=== PATIENT | female | born 1950 | race Caucasian/White ===

== ENCOUNTER 2016-11-05 19:52 | Inpatient (IN) | payer OTHER ==
[~2016-11-05] VITALS: Ht 165.1 cm; Wt 97.1 kg
--- NOTE | ~2016-11-05 | HC ---
[facility] [place] [address] CONSULTATION Name: JV LUTZ Room #: 434-P [facility] IN ..#: [id number] Admission: 11/05/16 Attend Phys: Adeel Wylie MD Discharge: 11/15/16 Date of : 54 Report #: [id number] THIS REPORT FOR: //name// CC: [facility] physician/PCP Adeel Guevara HISTORY OF PRESENT ILLNESS: The patient is a 66-year-old white female originally admitted with bilateral lower extremity pain, was noted to have peripheral arterial disease, placed on IV heparin, had left [id number] superficial femoral artery occlusion. She underwent COAT FINISHER with thrombectomy and thrombolysis on 11/06/2016. She had bilateral toe ischemia due to peripheral arterial disease status post TPA with 4 interventions done. Her course was complicated by dark stools. Heparin was held. EGD 11/12/2016 revealed esophageal plaque with reflux esophagitis. Heparin was discontinued secondary to the bleeding. She is continuing on aspirin. She is also on Plavix. She has had a significant functional decline and we are seeing her in rehabilitation medicine consultation. PAST MEDICAL HISTORY: Includes history of a small right thalamic infarct without significant residual, hypertension, dyslipidemia, tobaccoism, coronary artery disease status post PTCA right coronary artery. MEDICATIONS: Please see the full medication listing. HABITS: Still smokes a pack of cigarettes per day, occasional alcohol as well. FAMILY HISTORY: Positive for coronary artery disease in both parents. SOCIAL HISTORY: Lives in a house with her parents. She has been staying in the basement level of a split-level house. She has to climb 8 steps to the main level and then another 8 steps to reach the toilet and shower. She cares for her parents. Her son is currently caring for them. ALLERGIES: No known drug allergies. REVIEW OF SYSTEMS: Did not offer any current complaints of chest pain, shortness of breath or abdominal discomfort. PHYSICAL EXAMINATION: GENERAL: A 66-year-old white female in no obvious distress. VITAL SIGNS: Last recorded temperature 98.2, pulse 73, respirations 18, blood pressure 127/58. NEUROLOGIC: The patient is alert, pleasant, oriented. HEENT: Appeared to be benign. Cranial nerves are grossly intact. Facies are symmetric. EXTREMITIES: She has functional range of motion of both upper extremities [facility] [address] [place] [address] CONSULTATION Name: JV LUTZ Room #: 434-P [facility] IN [facility].#: [id number] Admission: 11/05/16 Attend Phys: Adeel Wylie MD Discharge: 11/15/16 Date of : 54 Report #: [id number] without obvious focal weakness. DTRs are trace to 1. In her lower extremities, she has some discomfort moving both feet. I would grade her strength at probably a 4- to 3+/5. She was sit to stand mod assist. She notes she has done some limited walking with nursing back and forth to the bathroom. ASSESSMENT: 1. Bilateral lower extremity distal ischemia due to peripheral arterial disease status post TPA and 4 interventions as noted. 2. Gastrointestinal bleed with esophageal plaque and reflux esophagitis. Heparin has been stopped. She continues on Plavix and aspirin. 3. Acute renal insufficiency stage 3, improving. 4. Hypertension, controlled. 5. Hyperlipidemia. 6. Coronary artery disease status post stent to right coronary artery. 7. History of cerebrovascular accident, right thalamic infarct without residual weakness. 8. Tobacco abuse. PLAN: We are assessing the patient regarding her rehab therapy needs. Insurance will need to be checked regarding rehab therapy options. I encouraged her to try to continue to improve her functional mobility and ADL as well. We continue to follow along with you. <ELECTRONICALLY SIGNED> By: Abdirahman Wolff MD 11/20/16 1523 [id number] [id number] Abdirahman Wolff MD /nt
--- NOTE | ~2016-11-05 | D ---
[facility] [place] [address] DISCHARGE SUMMARY Name: JV LUTZ Room #: 434-P [facility] IN .R.#: [id number] Admission: 11/05/16 Attend Phys: Adeel Wylie MD Discharge: 11/15/16 Date of : 54 Report #: [id number] THIS REPORT FOR: //name// CC: [facility] physician/PCP Adeel Guevara DATE OF SERVICE: 11/15/2016 DATE OF ADMISSION: 11/05/2016. DATE OF DISCHARGE: 11/15/2016. ADMISSION DIAGNOSES: 1. Peripheral arterial disease with right distal superficial femoral artery stenosis, left mid to distal superficial femoral artery occlusion, and occlusion in the dorsalis pedis arteries bilateral. 2. Hypertension. 3. Hyperlipidemia. 4. Acute kidney injury. 5. Coronary artery disease. 6. Cerebrovascular accident with right thalamic infarct with no residual weakness. DISCHARGE DIAGNOSES: 1. She has left second toe and the big toe with toe ischemia due to peripheral arterial disease status post tPA with 4 interventions of right distal superficial femoral artery stenosis, left distal superficial femoral artery occlusion and occlusion of the dorsalis pedis arteries, bilateral. She had a tPA, stent placement by IR. 2. Acute kidney injury on chronic kidney disease, which is improving. Renal was following throughout this hospitalization. 3. Gastrointestinal versus vaginal bleed. She had an EGD done, but she refused for colonoscopy. Questionably, she had a vaginal bleed, which has resolved. She has been postmenopausal for about 15+ years that need to be investigated further. Rule out endometrial cancer. 4. Hypertension. 5. Hyperlipidemia. 6. Coronary artery disease. 7. History of right thalamic infarct with no residual weakness. PROCEDURE: As described, she had seen IR, consulted for an angiogram and then she ended up having a tPA for intervention as described above. Her left second and left big toe, they were still ischemic, purplish color. Overall, she did improve, but she still had 2 ischemic toes. She may down the road end up getting amputation on that, but overall discussed with IR, Dr. Ab Pickering, [facility] [address] [place] [address] DISCHARGE SUMMARY Name: JV LUTZ Room #: 434-P [facility] IN M.R.#: [id number] Admission: 11/05/16 Attend Phys: Adeel Wylie MD Discharge: 11/15/16 Date of : 54 Report #: [id number] that is the best they could do. Pain is moderately controlled. HOSPITAL COURSE: During hospitalization as described, intervention was done. She did improve, and she had left big toe and the second toe that were still ischemic. She had a purplish turning into more like darks and still ischemic; quite a bit of pain, which is controlled with the medication. Also, during this hospitalization, she had a questionable vaginal versus gastrointestinal bleed. She had EGD, but she refused for colonoscopy, and also if she had a vaginal bleed, which has in fact resolved, with the postmenopausal status, she would need an endometrial biopsy to rule out endometrial CA, which we did schedule with the [facility]QUIPMENT ENGINE MECHANIC as outpatient since we do not have HE[facility] EQUIPMENT ENGINE MECHANIC in this hospital. We did schedule that. Regarding her rest of problems, they were controlled. We did arrange a rehab placement for her, but the patient refused to stay in the hospital for rehabilitation. All she wanted was go home. We did discuss the benefits and risks for that, and the patient still decided to go home. She was basically discharged with the plan to follow up with IR as scheduled in 3-4 weeks, and she is going to also schedule to follow up with HE[employer]QUIPMENT ENGINE MECHANIC in 1 week. See all the notes in the chart for further details. GI is going to see her in one month, and again, the patient decided to go home. That was her choice. We did offer her to stay in the rehab and also recommended it is important to follow up with HEAV[employer] EQUIPMENT ENGINE MECHANIC regarding her questionable vaginal bleed, to rule out endometrial CA. The patient does understand all this and then basically she went home. She was discharged, not left AMA, but again, it was her decision to go home and that not to stay in the hospital for further rehabilitation program all that. By: [id number] Manjit Guevara MD /nt
--- NOTE | ~2016-11-05 | HC ---
[facility] [place] [address] CONSULTATION Name: JV LUTZ Room #: 434-P [facility] IN .R.#: [id number] Admission: 11/05/16 Attend Phys: Adeel Wylie MD Discharge: 11/15/16 Date of : 54 Report #: [id number] THIS REPORT FOR: //name// CC: [facility] physician/PCP Adeel Cherryma DATE OF SERVICE: 11/14/2016 REQUESTING PHYSICIAN: Jorge Braswell MD CHIEF COMPLAINT: Ischemic toes. HISTORY OF PRESENT ILLNESS: This is a 66-year-old white female with a history of known peripheral vascular disease, who was admitted through the Emergency Department for acute ischemia of bilateral lower extremities. The patient supposedly having increasing pain in both lower extremities for the past several weeks. The patient states that she has been putting ice packs on her feet to help with some of the pain; however, in the Emergency Department when asked about noticed in her toes which was somewhat ischemic, she said she had not noticed that. The patient states she has been out of insurance for several months and has not been taking any of the medicines that she is supposed to be taking. The patient has no open ulcerations at this time; however, I have been asked to assist in the care of the ischemic toes. The patient does complain of claudication, pain with walking, where she has to stop occasionally. PAST MEDICAL HISTORY: Significant for right thalamic infarct, peripheral vascular disease, coronary artery disease status post PTCA of the right coronary artery, tobacco use, dyslipidemia, and hypertension. CURRENT MEDICATIONS: Aspirin, Lipitor, Lopressor and Advil. DRUG ALLERGIES: None. SOCIAL HISTORY: The patient still smokes 1-pack of cigarettes daily, does not drink alcohol. FAMILY HISTORY: Not pertinent to current medical condition. REVIEW OF SYSTEMS: CONSTITUTIONAL: The patient denies fevers or chills. NEUROLOGIC: The patient does complain of some numb-type feeling in both her feet, but no isolated weakness. EYES: No complaints. ENT: No complaints. CARDIAC: The patient denies chest pain, palpitations or peripheral edema. [address] [address] CONSULTATION Name: JV LUTZ Room #: 434-P [facility] IN [facility]#: [id number] Admission: 11/05/16 Attend Phys: Adeel Wylie MD Discharge: 11/15/16 Date of : 54 Report #: [id number] RESPIRATORY: The patient denies shortness breath, cough, or wheezes. GASTROINTESTINAL: The patient denies nausea, vomiting, or abdominal pain. GENITOURINARY: The patient denies urgency or frequency. MUSCULOSKELETAL: Noncompliant. SKIN: The patient has ischemic toes on the left great and second toe and the right great toe. PHYSICAL EXAMINATION: VITAL SIGNS: Stable. The patient is afebrile. GENERAL: This is alert and oriented x 3, pleasant black female, who is in no acute distress. HEENT: Normocephalic, atraumatic. Mucous membranes are moist. Pupils are round. Sclerae white. NECK: Without JVD or masses. BACK: Nontender. LUNGS: Clear. HEART: Regular, without murmur. ABDOMEN: Soft and nontender. EXTREMITIES: The patient moves all extremities without difficulty. Distal pulses are faint, but palpable. Evaluation of the left great second toe revealed ecchymotic/black discoloration to the toes; however, they are soft and not . They are somewhat cool to palpation. There are no signs of any open ulcerations. The rest of the toes on the left were intact. Left heel is intact. Right great toe has an eschar developing on the plantar aspect of the base of the great toe. The rest of the toes were all intact. There is no open the patient noted. NEUROLOGIC: Cranial nerves 2-12 are grossly intact. Motor and sensory grossly intact. LABORATORY VALUES: White count 13.9, hemoglobin 10.9, and albumin is 2.1. WOUND CARE COURSE: At this time, we will start Betadine to all the areas, have the patient do this daily at home. I will follow the patient up in my clinic as an outpatient in hopes of that we can salvage all of these toes and that his ischemic events are only superficial. The patient is now status percutaneous intervention. IMPRESSION: 1. Left great and second ischemic skin changes without signs of open ulcerations. 2. Ischemic changes to the right great toe with eschar. 3. Severe peripheral arterial disease, status post peripheral intervention. 4. History of coronary artery disease. 5. Hyperlipidemia. 6. Severe protein calorie malnutrition with albumin of 2.1. [address] [address] CONSULTATION Name: JV LUTZ Room #: 434-P [facility] IN M.R.#: [id number] Admission: 11/05/16 Attend Phys: Adeel Wylie MD Discharge: 11/15/16 Date of : 54 Report #: [id number] PLAN: Once again described as above, the patient will paint the toes with Betadine daily. We will follow the patient up in our clinic. Once again I hope that these ischemic changes of the toes are superficial and we can start salvage the toes without having to perform amputation. We will follow the patient closely. We will also encourage the patient to stop smoking. I explained to her the effects of smoking on her, which causes worsening vascular constriction. We will also encourage the patient to maximize oral protein supplementation for healing. I appreciate the ability to consult. By: [id number] Adarsh Ferguson MD /nt
--- NOTE | ~2016-11-05 | HC ---
[facility] [place] [address] CONSULTATION Name: JV LUTZ Room #: 434-P [facility] IN M.R.#: [id number] Admission: 11/05/16 Attend Phys: Adeel Wylie MD Discharge: Date of : 54 Report #: [id number] THIS REPORT FOR: //name// CC: [facility] physician/PCP Adeel uGevara DATE OF SERVICE: 11/06/2016 RENAL CONSULTATION PATIENT LOCATION: ICU room 238. REASON FOR CONSULTATION: Critical care renal consultation in the setting of bilateral lower extremity ischemia and acute kidney injury. HISTORY OF PRESENT ILLNESS: This 66-year-old has a known history of advanced atherosclerotic cardiovascular disease. She is status post previous myocardial infarction with percutaneous coronary intervention and has had 2 prior CVAs. She has continued to smoke 1 pack of cigarettes daily. She last had medical attention in 2014 when she was hospitalized at [facility] with an acute CVA. The patient reports that over the course of the last month, her feet have grown increasingly painful and increasingly blue in coloration. She ultimately presented to the [facility] Emergency Room on the evening prior to consultation, where she was found to have advanced ischemic changes of her feet bilaterally. She is admitted at this time. She has undergone laser thrombectomy and thrombolysis through the course of the day today and is seen post-procedure in the intensive care unit with thrombolytics still running. PAST MEDICAL HISTORY: Remarkable for previous right thalamic infarct, hypertension, dyslipidemia and coronary artery disease, status post PTCA to the right coronary artery. She has ongoing tobacco abuse at one pack of cigarettes daily. FAMILY HISTORY: Remarkable for coronary artery disease in both parents. PERSONAL AND SOCIAL HISTORY: The patient smokes one pack of cigarettes daily, but does not afford her medications. She drinks occasional alcohol. REVIEW OF SYSTEMS: Remarkable as described in the history of present illness for chronic lower extremity changes. She denies shortness of breath, productive cough, hemoptysis, chest pain, nausea, vomiting, diarrhea or constipation. PHYSICAL EXAMINATION: [facility] [address] [place] [address] CONSULTATION Name: JV LUTZ Room #: 434-P [facility] IN M.R.#: [id number] Admission: 11/05/16 Attend Phys: Adeel Wylie MD Discharge: Date of : 54 Report #: [id number] GENERAL: Reveals a well-developed, well-nourished, chronically ill-appearing female, who is in mild discomfort at this time. VITAL SIGNS: Blood pressure 136/69, temperature 97.2, pulse 84 and respirations 16. SKIN: Warm and dry in the upper extremities. There are chronic ischemic changes of the lower extremities bilaterally. There is ashleigh cyanosis seen. The feet are cool bilaterally. HEENT: The head is normocephalic and atraumatic. The sclerae are white and the conjunctivae are not injected. The pharynx is benign. NECK: Supple. LUNGS: Lung callejas are grossly clear to percussion and auscultation. CARDIOVASCULAR EXAMINATION: Reveals a regular rate and rhythm, without rub. ABDOMEN: Soft and nontender, without palpable mass or organomegaly. NEUROLOGICAL EXAMINATION: Reveals the patient to be alert and cooperative with a nonfocal exam. LABORATORY DATA: Laboratory studies available at this time include sodium 134, potassium 4.4, chloride 99, CO2 of 19, BUN 81, creatinine 2.4 and glucose 119. White blood cell count 14,800, hemoglobin 18.9, hematocrit 54 and platelet count 214,000. Urinalysis is pending. ASSESSMENT: 1. Bilateral lower extremity arterial occlusion, status post laser thrombectomy and thrombolysis treatment. Salvage of her distal lower extremities remains questionable at this point. She has continued to be followed by interventional radiology and will require a repeat catheterization. She may end up needing other potential limb salvage procedures or possibly amputation. 2. Acute kidney injury in the setting of ischemic limb with normal CPK and no evidence of acute rhabdomyolysis. We will change her from normal saline isotonic hydration to isotonic bicarbonate-containing hydration and follow serial laboratory studies, I and O and daily weights. I will check a urinalysis. I have been told by interventional radiology that her renal arteries are intact and patent. 3. Prior cerebrovascular accident. 4. Coronary artery disease, status post previous percutaneous coronary intervention. 5. Ongoing tobacco abuse. 6. Dyslipidemia. 7. Untreated hypertension secondary to medication noncompliance. PLAN: The patient has multiple significant renal problems as well as other acute limb-threatening problems. We will continue to follow the patient closely with serial laboratory studies, I and O and daily weights. Please see orders. [address] [address] CONSULTATION Name: JV LUTZ Room #: 434-P [facility] IN ..#: [id number] Admission: 11/05/16 Attend Phys: Adeel Wylie MD Discharge: Date of : 54 Report #: [id number] Critical care time 60 minutes. <ELECTRONICALLY SIGNED> By: Calderon Reyes MD 11/13/16 1757 1752 0055 Calderon Reyes MD /nt
[~2016-11-05 19:52] MED LIST: ADULT LOW DOSE81 MG PO; ASPIRIN325 PO; ATORVASTATIN CA40 MG PO; IBUPROFEN 200200 M1 PO; LIPITOR40 MG PO; LIPTRUZET PO; LISINOPRIL-HCT1 EACH PO; LOPRESSOR 50 MG50 M1 PO; LOPRESSOR50 PO; MAXZIDE-25 MG1 EACH PO; NICOTINE TRANSD14 M1 TD; PLAVIX 75 MG TA75 M1 PO; SIMVASTATIN40 MG PO; TYLENOL325 MG PO; ZETIA10 MG PO
[2016-11-05 20:15] VITALS: BP 147/80
[2016-11-05 21:42] LABS: HEMOGLOBIN 18.9 gm/dL (12.0-15.0); MCH 28.6 pg (26.0-34.0); MCV 81.7 fL (80.0-100.0); PLATELET COUNT 214 thou/uL (150-400); RBC 6.61 mil/uL (4.20-5.00); RDW 14.1 % (10.5-14.5); WBC 14.8 thou/uL (4.0-11.0)
[2016-11-05 21:43] LABS: MANUAL DIFF YES
[2016-11-05 21:46] LABS: CREATININE 2.4 mg/dL (0.6-1.0); POTASSIUM 4.4 mmol/L (3.5-5.1)
[2016-11-05 21:53] LABS: APTT 30.4 Seconds (24.5-32.8); PROTIME 10.7 Seconds (9.3-11.4)
[2016-11-05 22:52] LABS: ABSOLUTE NEUTROPHILS 11.8 thou/uL (1.4-8.2); ANISOCYTOSIS 1+; TOTAL CELL COUNT 100
[2016-11-05 23:22] VITALS: BP 142/81
[2016-11-06] VITALS (31 sets, daily range): BP systolic 115–197; BP diastolic 64–134
[2016-11-06 19:44] LABS: URINE BILIRUBIN NEGATIVE (Negative); URINE BLOOD 1+ (Negative); URINE COLOR YELLOW; URINE GLUCOSE-RANDOM* NEGATIVE (Negative); URINE KETONES NEGATIVE (Negative); URINE LEUKOCYTES-REFLEX NEGATIVE (Negative); URINE PROTEIN (DIPSTICK) TRACE (Negative); URINE UROBILINOGEN 0.2 E.U./dl (0.2-1.0)
[2016-11-06 20:54] LABS: HYALINE CASTS 0-3 Few /LPF (None Seen); SQUAMOUS None Seen /LPF (0-3)
[2016-11-06 20:55] LABS: AMORPHOUS URATES Few /LPF (None Seen); CRYSTALS None Seen /LPF (None Seen); URINE RBC 0-2 Rare /HPF (0-2); URINE WBC-REFLEX 0-5 Rare /HPF (0-5)
[2016-11-06 21:30] LABS: HEMATOCRIT 48.9 % (37.0-47.0); MCH 28.3 pg (26.0-34.0); MCHC 34.3 g/dL (28.0-37.0); MCV 82.6 fL (80.0-100.0); RBC 5.92 mil/uL (4.20-5.00); RDW 14.6 % (10.5-14.5); WBC 24.5 thou/uL (4.0-11.0)
[2016-11-06 21:33] LABS: HEMOGLOBIN 16.8 gm/dL (12.0-15.0)
[2016-11-06 21:48] LABS: CALCIUM 9.3 mg/dL (8.5-10.1); CREATININE 1.8 mg/dL (0.6-1.0); POTASSIUM 3.9 mmol/L (3.5-5.1)
[2016-11-06 22:29] LABS: APTT 46.7 Seconds (24.5-32.8)
[2016-11-06 23:02] LABS: FIBRINOGEN 91.4 mg/dL (210-360)
[2016-11-07] VITALS (40 sets, daily range): BP systolic 109–164; BP diastolic 64–125
[2016-11-07 04:09] LABS: HEMATOCRIT 47.1 % (37.0-47.0); HEMOGLOBIN 16.2 gm/dL (12.0-15.0); MCH 28.4 pg (26.0-34.0); MCHC 34.4 g/dL (28.0-37.0); MCV 82.6 fL (80.0-100.0); RBC 5.7 mil/uL (4.20-5.00); RDW 14.2 % (10.5-14.5); WBC 17.8 thou/uL (4.0-11.0)
[2016-11-07 04:21] LABS: ALBUMIN 3.3 g/dL (3.4-5.0); CALCIUM 8.9 mg/dL (8.5-10.1); CREATININE 1.8 mg/dL (0.6-1.0); MAGNESIUM 2.1 mg/dL (1.8-2.4); PHOSPHORUS 5.7 mg/dL (2.5-4.9); POTASSIUM 4.2 mmol/L (3.5-5.1); TOTAL BILIRUBIN 0.5 mg/dL (<0.1-1.0); TOTAL PROTEIN 6.9 g/dL (6.4-8.2)
[2016-11-07 04:26] LABS: APTT 35.3 Seconds (24.5-32.8); FIBRINOGEN 136.4 mg/dL (210-360)
[2016-11-07 17:06] LABS: HEMATOCRIT 43.2 % (37.0-47.0); HEMOGLOBIN 14.9 gm/dL (12.0-15.0); MCH 28.3 pg (26.0-34.0); MCHC 34.4 g/dL (28.0-37.0); MCV 82.1 fL (80.0-100.0); RBC 5.26 mil/uL (4.20-5.00); RDW 14.3 % (10.5-14.5); WBC 22.5 thou/uL (4.0-11.0)
[2016-11-08] VITALS (20 sets, daily range): BP systolic 127–180; BP diastolic 58–103
[2016-11-08 06:14] LABS: HEMATOCRIT 39.6 % (37.0-47.0); HEMOGLOBIN 13.7 gm/dL (12.0-15.0); MCH 28.1 pg (26.0-34.0); MCHC 34.6 g/dL (28.0-37.0); MCV 81.2 fL (80.0-100.0); PLATELET COUNT 95 thou/uL (150-400); RBC 4.87 mil/uL (4.20-5.00); WBC 21.7 thou/uL (4.0-11.0)
[2016-11-08 06:16] LABS: MANUAL DIFF YES
[2016-11-08 06:24] LABS: ALBUMIN 2.6 g/dL (3.4-5.0); CALCIUM 8.2 mg/dL (8.5-10.1); CREATININE 1.2 mg/dL (0.6-1.0); PHOSPHORUS 2.7 mg/dL (2.5-4.9); POTASSIUM 3.3 mmol/L (3.5-5.1)
[2016-11-08 08:08] LABS: ABSOLUTE NEUTROPHILS 19.1 thou/uL (1.4-8.2); TOTAL CELL COUNT 100
[2016-11-08 08:09] LABS: ANISOCYTOSIS SLIGHT
[2016-11-09] VITALS (23 sets, daily range): BP systolic 124–175; BP diastolic 68–112
[2016-11-09 04:25] LABS: HEMATOCRIT 41.8 % (37.0-47.0); HEMOGLOBIN 14.3 gm/dL (12.0-15.0); MCH 28.4 pg (26.0-34.0); MCHC 34.3 g/dL (28.0-37.0); RBC 5.04 mil/uL (4.20-5.00); RDW 13.9 % (10.5-14.5); WBC 21.6 thou/uL (4.0-11.0)
[2016-11-09 04:41] LABS: ALBUMIN 2.4 g/dL (3.4-5.0); CALCIUM 8.7 mg/dL (8.5-10.1); CREATININE 1.1 mg/dL (0.6-1.0); PHOSPHORUS 2.2 mg/dL (2.5-4.9); POTASSIUM 3.6 mmol/L (3.5-5.1)
[2016-11-10] VITALS (24 sets, daily range): BP systolic 102–161; BP diastolic 54–92
[2016-11-10 03:53] LABS: HEMATOCRIT 37.8 % (37.0-47.0); HEMOGLOBIN 12.9 gm/dL (12.0-15.0); MCH 28.4 pg (26.0-34.0); MCHC 34.2 g/dL (28.0-37.0); MCV 82.9 fL (80.0-100.0); RBC 4.57 mil/uL (4.20-5.00); RDW 14.2 % (10.5-14.5); WBC 18.5 thou/uL (4.0-11.0)
[2016-11-10 04:07] LABS: ALBUMIN 2.1 g/dL (3.4-5.0); CALCIUM 8.2 mg/dL (8.5-10.1); CREATININE 0.8 mg/dL (0.6-1.0); PHOSPHORUS 2.8 mg/dL (2.5-4.9); POTASSIUM 3.1 mmol/L (3.5-5.1)
[2016-11-11] VITALS (12 sets, daily range): BP systolic 108–185; BP diastolic 49–88
[2016-11-11 09:39] LABS: HEMATOCRIT 36.5 % (37.0-47.0); HEMOGLOBIN 12.3 gm/dL (12.0-15.0); MCH 28.2 pg (26.0-34.0); MCHC 33.6 g/dL (28.0-37.0); MCV 83.9 fL (80.0-100.0); RBC 4.34 mil/uL (4.20-5.00); RDW 14.5 % (10.5-14.5); WBC 16.3 thou/uL (4.0-11.0)
[2016-11-12 03:30] VITALS: BP 142/75
[2016-11-12 08:00] VITALS: BP 138/58
[2016-11-12 12:00] VITALS: BP 124/62
[2016-11-12 12:11] LABS: HEMOGLOBIN 11.9 gm/dL (12.0-15.0); MCH 28.4 pg (26.0-34.0); MCV 83.4 fL (80.0-100.0); RBC 4.19 mil/uL (4.20-5.00); RDW 14.2 % (10.5-14.5); WBC 14.6 thou/uL (4.0-11.0)
[2016-11-12 12:24] LABS: CALCIUM 8.5 mg/dL (8.5-10.1); POTASSIUM 3.1 mmol/L (3.5-5.1)
[2016-11-12 16:00] VITALS: BP 120/67
[2016-11-12 19:25] VITALS: BP 133/55
[2016-11-13 04:20] VITALS: BP 143/65
[2016-11-13 06:05] LABS: HEMATOCRIT 34.4 % (37.0-47.0); HEMOGLOBIN 11.7 gm/dL (12.0-15.0); MCH 28.6 pg (26.0-34.0); RBC 4.09 mil/uL (4.20-5.00); RDW 14.4 % (10.5-14.5); WBC 13.7 thou/uL (4.0-11.0)
[2016-11-13 06:18] LABS: CALCIUM 8.4 mg/dL (8.5-10.1); POTASSIUM 3.4 mmol/L (3.5-5.1)
[2016-11-13 07:02] VITALS: BP 119/61
[2016-11-13 11:41] VITALS: BP 113/54
[2016-11-13 15:16] VITALS: BP 127/58
[2016-11-13 19:36] VITALS: BP 149/53
[2016-11-14 04:11] VITALS: BP 159/67
[2016-11-14 05:45] LABS: HEMATOCRIT 32.2 % (37.0-47.0); HEMOGLOBIN 10.9 gm/dL (12.0-15.0); MCH 28.4 pg (26.0-34.0); MCHC 33.7 g/dL (28.0-37.0); MCV 84.5 fL (80.0-100.0); RBC 3.82 mil/uL (4.20-5.00); RDW 14.2 % (10.5-14.5); WBC 13.9 thou/uL (4.0-11.0)
[2016-11-14 06:00] LABS: CALCIUM 8.5 mg/dL (8.5-10.1); CREATININE 1.1 mg/dL (0.6-1.0); POTASSIUM 3.3 mmol/L (3.5-5.1)
[2016-11-14 08:02] VITALS: BP 148/62
[2016-11-14 12:20] VITALS: BP 110/63
[2016-11-14 15:10] VITALS: BP 124/61
[2016-11-14 19:14] VITALS: BP 124/48
[2016-11-15 04:07] VITALS: BP 136/76
[2016-11-15 08:00] VITALS: BP 155/79
[2016-11-15 10:09] LABS: HEMATOCRIT 32.1 % (37.0-47.0); HEMOGLOBIN 10.9 gm/dL (12.0-15.0); MCH 28.4 pg (26.0-34.0); MCHC 33.9 g/dL (28.0-37.0); MCV 83.8 fL (80.0-100.0); RBC 3.84 mil/uL (4.20-5.00); RDW 14.3 % (10.5-14.5); WBC 13.8 thou/uL (4.0-11.0)
[2016-11-15] MEDS ORDERED: HYDROCODON-ACE1 EAC7 PO (11:43)
[2016-11-15] MEDS ORDERED: CLOPIDOGREL75 MG PO (11:43)
[2016-11-15] MEDS ORDERED: LOPRESSOR50 PO (11:43)
[2016-11-15] MEDS ORDERED: ASPIRIN325 PO (11:43)
[2016-11-15] MEDS ORDERED: NEXIUM40 MG PO (11:43)
[2016-11-15] MEDS ORDERED: ATORVASTATIN CA40 MG PO (11:43)
[2016-11-15 12:00] VITALS: BP 154/77
[2016-11-15 16:00] VITALS: BP 142/59
[2016-11-15 16:59] VITALS: BP 142/59
== END 2016-11-15 18:00 | disposition home or self-care (01) | DRG 270 ==
LOC: ER 19:52 → EROBS 22:38 → 4S 22:38 → ICU 23:42 → 4S 23:51 → ICU 11-06 16:10 → 4S 11-11 08:12
PROVIDERS: Emergency Medicine; Hospitalist; Internal Medicine; Internal Medicine Nephrology; Nurse Practitioner Adult Health; Radiology Diagnostic Radiology; Radiology Vascular & Interventional Radiology
PROC: 04HY32Z Insertion of Monitoring Device into Lower Artery, Percutaneous Approach (ICD-10-PCS; 2016-11-06)
PROC: 04CU3ZZ Extirpation of Matter from Left Peroneal Artery, Percutaneous Approach (ICD-10-PCS; 2016-11-06)
PROC: 3E05317 Introduction of Other Thrombolytic into Peripheral Artery, Percutaneous Approach (ICD-10-PCS; 2016-11-06)
PROC: 04CN3ZZ Extirpation of Matter from Left Popliteal Artery, Percutaneous Approach (ICD-10-PCS; 2016-11-06)
PROC: B41G1ZZ Fluoroscopy of Left Lower Extremity Arteries using Low Osmolar Contrast (ICD-10-PCS; 2016-11-06)
PROC: B41F1ZZ Fluoroscopy of Right Lower Extremity Arteries using Low Osmolar Contrast (ICD-10-PCS; 2016-11-06)
PROC: B4181ZZ Fluoroscopy of Bilateral Renal Arteries using Low Osmolar Contrast (ICD-10-PCS; 2016-11-06)
PROC: 047L3DZ Dilation of Left Femoral Artery with Intraluminal Device, Percutaneous Approach (ICD-10-PCS; 2016-11-06)
PROC: 04CL3ZZ Extirpation of Matter from Left Femoral Artery, Percutaneous Approach (ICD-10-PCS; 2016-11-06)
PROC: B3101ZZ Fluoroscopy of Thoracic Aorta using Low Osmolar Contrast (ICD-10-PCS; 2016-11-06)
PROC: 047K3DZ Dilation of Right Femoral Artery with Intraluminal Device, Percutaneous Approach (ICD-10-PCS; 2016-11-07)
PROC: B41G1ZZ Fluoroscopy of Left Lower Extremity Arteries using Low Osmolar Contrast (ICD-10-PCS; 2016-11-07)
PROC: B41F1ZZ Fluoroscopy of Right Lower Extremity Arteries using Low Osmolar Contrast (ICD-10-PCS; 2016-11-07)
PROC: 04CS3ZZ Extirpation of Matter from Left Posterior Tibial Artery, Percutaneous Approach (ICD-10-PCS; 2016-11-07)
PROC: 047S3ZZ Dilation of Left Posterior Tibial Artery, Percutaneous Approach (ICD-10-PCS; 2016-11-07)
PROC: 04CQ3ZZ Extirpation of Matter from Left Anterior Tibial Artery, Percutaneous Approach (ICD-10-PCS; 2016-11-07)
PROC: B41F1ZZ Fluoroscopy of Right Lower Extremity Arteries using Low Osmolar Contrast (ICD-10-PCS; 2016-11-08)
PROC: B41G1ZZ Fluoroscopy of Left Lower Extremity Arteries using Low Osmolar Contrast (ICD-10-PCS; 2016-11-08)
PROC: 047K3DZ Dilation of Right Femoral Artery with Intraluminal Device, Percutaneous Approach (ICD-10-PCS; 2016-11-08)
PROC: 047U3ZZ Dilation of Left Peroneal Artery, Percutaneous Approach (ICD-10-PCS; 2016-11-09)
PROC: B41G1ZZ Fluoroscopy of Left Lower Extremity Arteries using Low Osmolar Contrast (ICD-10-PCS; 2016-11-09)
PROC: 04CS3ZZ Extirpation of Matter from Left Posterior Tibial Artery, Percutaneous Approach (ICD-10-PCS; 2016-11-09)
PROC: 047S3DZ Dilation of Left Posterior Tibial Artery with Intraluminal Device, Percutaneous Approach (ICD-10-PCS; 2016-11-09)
PROC: 0DJ08ZZ Inspection of Upper Intestinal Tract, Via Natural or Artificial Opening Endoscopic (ICD-10-PCS; principal; 2016-11-12)
DX: I77.1 Stricture of artery (principal); E43 Unspecified severe protein-calorie malnutrition; N17.9 Acute kidney failure, unspecified; K92.2 Gastrointestinal hemorrhage, unspecified; K92.1 Melena; I70.202 Unspecified atherosclerosis of native arteries of extremities, left leg; M62.261 Nontraumatic ischemic infarction of muscle, right lower leg; M62.262 Nontraumatic ischemic infarction of muscle, left lower leg; I70.201 Unspecified atherosclerosis of native arteries of extremities, right leg; E78.5 Hyperlipidemia, unspecified; F12.90 Cannabis use, unspecified, uncomplicated; G89.29 Other chronic pain; E87.6 Hypokalemia; M54.9 Dorsalgia, unspecified; G25.81 Restless legs syndrome; N18.3 Chronic kidney disease, stage 3 (moderate); I12.9 Hypertensive chronic kidney disease with stage 1 through stage 4 chronic kidney disease, or unspecified chronic kidney disease; E86.0 Dehydration; D50.0 Iron deficiency anemia secondary to blood loss (chronic); K44.9 Diaphragmatic hernia without obstruction or gangrene; K21.0 Gastro-esophageal reflux disease with esophagitis; E11.22 Type 2 diabetes mellitus with diabetic chronic kidney disease; E11.51 Type 2 diabetes mellitus with diabetic peripheral angiopathy without gangrene; D72.829 Elevated white blood cell count, unspecified; R23.0 Cyanosis; F17.210 Nicotine dependence, cigarettes, uncomplicated; I25.10 Atherosclerotic heart disease of native coronary artery without angina pectoris; Z86.73 Personal history of transient ischemic attack (TIA), and cerebral infarction without residual deficits; Z95.5 Presence of coronary angioplasty implant and graft; Z90.49 Acquired absence of other specified parts of digestive tract; Z91.19 Patient's noncompliance with other medical treatment and regimen; Z71.6 Tobacco abuse counseling; Z82.49 Family history of ischemic heart disease and other diseases of the circulatory system; Z68.35 Body mass index [BMI] 35.0-35.9, adult; I25.2 Old myocardial infarction
CPT/HCPCS: 10078; 10100; 62110; 62900; 70005

== ENCOUNTER 2016-12-12 14:12 | Inpatient (IN) | payer OTHER ==
[~2016-12-12] VITALS: Ht 152.4 cm; Wt 85.3 kg
--- NOTE | ~2016-12-12 | CRIT ---
[facility] [place] [address] CRITICAL CARE NOTE Name: JV LUTZ Room #: 245-P [facility] IN M.R.#: [id number] Admission: 12/13/16 Attend Phys: Sharan Salomon Discharge: 12/15/16 Date of : 54 Report #: [id number] THIS REPORT FOR: //name// CC: William Pickering [facility] physician/PCP WOUND CARE CONSULTATION NOTE DATE OF CONSULTATION: 12/15/2016. REASON FOR CONSULTATION: Ischemia of left leg with dry gangrene of first and second toe, critical ischemia of right lower extremity with wet gangrene of the first and second toe interspace. HISTORY OF PRESENT ILLNESS: The patient is a very pleasant 66-year-old woman, previously tobacco smoker, no longer smoking, who approximately mid-October of this year began to experience some pain in her left foot. She was treated by Dr. Mikhail Pickering during hospitalization for rest pain 11/05/2016 at which time she underwent vascular interventions of her left lower extremity with TPA, thrombolytic therapy angioplasty and thrombectomy. The patient on 11/05/2016 gain relief of the pain in her left foot; however, she developed some dry gangrene of the left first and second toe, which has been stable. Approximately 1 week ago, the patient began to have some pain in her right foot and developed an open wound between her great toe and second toe which was quite painful with some drainage. The patient was readmitted to the hospital and yesterday underwent vascular intervention for her ischemic right foot with a nonhealing ulcer between the first and second toes. She yesterday underwent [employer] with thrombectomy. There was found that she had distal chronic fibrin clot emboli at the level of the mid foot and distally with an occluded right anterior tibial artery at the level of the ankle and a posterior tibial artery showing some spasm. She had previously had an SFA stent in the right leg, which was patent. The patient yesterday underwent TPA thrombolysis thrombectomy and [employer]. Her heparin was continued. Wound care was consulted for her gangrene of the left first and second toes and gangrene with ulcer of the right foot. PAST MEDICAL HISTORY: Chronic back pain, restless leg syndrome, history of myocardial infarction with stents 2011, history of cerebrovascular accident in 2013 with residual right arm weakness. SOCIAL HISTORY: The patient is a previous cigarette smoker, but not now. Home medications were aspirin. She did not get her Plavix filled. PHYSICAL EXAMINATION: GENERAL: Shows an alert, pleasant 66-year-old woman who states that she has no pain in her left foot despite gangrene of the left first and second toe. The [address] [address] CRITICAL CARE NOTE Name: JV LUTZ STANLEY Room #: 245-P [facility] IN M.R.#: [id number] Admission: 12/13/16 Attend Phys: Sharan Salomon Discharge: 12/15/16 Date of : 54 Report #: [id number] patient does have pain in her right foot with extreme sensitivity of the skin of the dorsum of her foot and the toes. HEENT: Mucous membranes are moist. NECK: Supple. CHEST: Clear. HEART: Sounds regular rate and rhythm. ABDOMEN: Soft. EXTREMITIES: Examination of the extremities shows intact strong monophasic dorsalis pedis bedside Doppler signal, although I have difficulty feeling a pulse. There is a weaker monophasic Doppler pulse present on the right dorsalis pedis. Examination of the left foot shows dry black stable gangrene of the distal 1.5 cm of the left toe tip into the left second toe tip. This is dry black stable gangrene without evidence of cellulitis or inflammation. It is relatively nontender. Examination of the right lower extremity shows some purplish red mottling of the skin at the dorsum of the foot extending approximately 5-6 cm past the ankle in a geographic pattern. Skin of the foot is extremely tender to touch. Examination of the great toe and the second toe shows that these are swollen and there is slight amount of dried drainage between the first and second toe. This area is very tender, the toes cannot be spread apart; however, the patient, nursing staff report an ulcer at the base, the webspace between the first and second toe. IMPRESSION: 1. History of myocardial infarction with stents 2011. 2. History of cerebrovascular accident in 2013, residual right arm weakness. 3. History of diabetes, hypertension, hypercholesterolemia. 4. Severe peripheral vascular disease of the left lower extremity with dry gangrene, stable at the left great and second toe, status post revascularization. Critical ischemia of the right lower extremity with gangrene and ulceration of the skin between the right first and second toe. Doppler signal is present in the right dorsalis pedis. PLAN: Betadine paint to the toes in the left foot. We will continue to observe this is stable. Continue clinical exam of the right foot with serial Doppler checks. Order more morphine-Silvadene compound for the painful skin also between the right first and second toes. Continue heparin. We will continue to clinically observe the right foot. Orthopedics has been consulted to observe as well. Wound care team will follow. <ELECTRONICALLY SIGNED> By: Willam Pinto MD 12/18/16 0820 [id number] [id number] Willam Pinto MD /damari
[~2016-12-12 14:12] MED LIST changes: +CLOPIDOGREL75 MG PO; +HYDROCODON-ACE1 EAC7 PO; +NEXIUM40 MG PO
[2016-12-12] MEDS ORDERED: MAXZIDE-25 MG1 EACH PO (18:46)
[2016-12-12 18:50] VITALS: BP 156/88
[2016-12-12 20:00] VITALS: BP 161/71
[2016-12-12 23:40] VITALS: BP 138/76
[2016-12-13] VITALS (33 sets, daily range): BP systolic 138–188; BP diastolic 64–126
[2016-12-13 05:12] LABS: HEMATOCRIT 35.2 % (37.0-47.0); HEMOGLOBIN 11.9 gm/dL (12.0-15.0); MCH 28.7 pg (26.0-34.0); MCHC 33.9 g/dL (28.0-37.0); MCV 84.6 fL (80.0-100.0); RBC 4.15 mil/uL (4.20-5.00); RDW 15.9 % (10.5-14.5); WBC 9.8 thou/uL (4.0-11.0)
[2016-12-13 05:18] LABS: CALCIUM 9.3 mg/dL (8.5-10.1); CREATININE 1.8 mg/dL (0.6-1.0); POTASSIUM 4.1 mmol/L (3.5-5.1)
[2016-12-13 05:22] LABS: INR 1.1; PROTIME 10.9 Seconds (9.3-11.4)
[2016-12-13 16:01] LABS: HEMATOCRIT 32.7 % (37.0-47.0); HEMOGLOBIN 11.1 gm/dL (12.0-15.0); MCH 28.8 pg (26.0-34.0); MCHC 33.8 g/dL (28.0-37.0); MCV 85.3 fL (80.0-100.0); RBC 3.83 mil/uL (4.20-5.00); WBC 7.7 thou/uL (4.0-11.0)
[2016-12-13 16:15] LABS: FIBRINOGEN 263.7 mg/dL (210-360)
[2016-12-13 21:34] LABS: HEMATOCRIT 34.2 % (37.0-47.0); HEMOGLOBIN 11.5 gm/dL (12.0-15.0); MCH 28.8 pg (26.0-34.0); MCHC 33.7 g/dL (28.0-37.0); MCV 85.4 fL (80.0-100.0); RDW 15.8 % (10.5-14.5); WBC 9.6 thou/uL (4.0-11.0)
[2016-12-13 22:08] LABS: APTT 31.2 Seconds (24.5-32.8); FIBRINOGEN 182.3 mg/dL (210-360)
[2016-12-14] VITALS (36 sets, daily range): BP systolic 106–183; BP diastolic 55–87
[2016-12-14 04:16] LABS: HEMATOCRIT 34.2 % (37.0-47.0); HEMOGLOBIN 11.5 gm/dL (12.0-15.0); MCH 28.9 pg (26.0-34.0); MCHC 33.6 g/dL (28.0-37.0); RBC 3.98 mil/uL (4.20-5.00); RDW 16.5 % (10.5-14.5)
[2016-12-14 04:21] LABS: APTT 29.4 Seconds (24.5-32.8); CALCIUM 8.3 mg/dL (8.5-10.1); CREATININE 1.3 mg/dL (0.6-1.0); FIBRINOGEN 164.7 mg/dL (210-360); POTASSIUM 4.3 mmol/L (3.5-5.1)
[2016-12-14 14:41] LABS: HEMATOCRIT 36.2 % (37.0-47.0); HEMOGLOBIN 11.7 gm/dL (12.0-15.0); MCH 28.2 pg (26.0-34.0); MCHC 32.2 g/dL (28.0-37.0); MCV 87.3 fL (80.0-100.0); RBC 4.15 mil/uL (4.20-5.00); RDW 16.3 % (10.5-14.5); WBC 11.3 thou/uL (4.0-11.0)
[2016-12-14 14:54] LABS: APTT 23.9 Seconds (24.5-32.8); INR 1.1; PROTIME 11.4 Seconds (9.3-11.4)
[2016-12-15] VITALS (31 sets, daily range): BP systolic 106–149; BP diastolic 46–105
[2016-12-15 04:56] LABS: HEMOGLOBIN 10.3 gm/dL (12.0-15.0); MCH 29.3 pg (26.0-34.0); MCHC 34.3 g/dL (28.0-37.0); MCV 85.3 fL (80.0-100.0); RBC 3.51 mil/uL (4.20-5.00); WBC 9.8 thou/uL (4.0-11.0)
[2016-12-15 05:05] LABS: CALCIUM 8.7 mg/dL (8.5-10.1); CREATININE 1.3 mg/dL (0.6-1.0); POTASSIUM 4.1 mmol/L (3.5-5.1)
== END 2016-12-15 17:26 | disposition short-term general hospital (02) | DRG 271 ==
LOC: SPEC 14:12 → RAD 17:59 → 3N 18:22 → SPEC 12-13 11:56 → ICU 12-13 11:57 → 3N 12-13 11:57 → ICU 12-13 13:24
PROVIDERS: Nurse Practitioner Family; Radiology Diagnostic Radiology; Radiology Vascular & Interventional Radiology
PROC: B41F1ZZ Fluoroscopy of Right Lower Extremity Arteries using Low Osmolar Contrast (ICD-10-PCS; principal; 2016-12-13)
PROC: 3E05317 Introduction of Other Thrombolytic into Peripheral Artery, Percutaneous Approach (ICD-10-PCS; principal; 2016-12-13)
PROC: 047R3ZZ Dilation of Right Posterior Tibial Artery, Percutaneous Approach (ICD-10-PCS; 2016-12-14)
PROC: 047K3ZZ Dilation of Right Femoral Artery, Percutaneous Approach (ICD-10-PCS; 2016-12-14)
PROC: 047P3ZZ Dilation of Right Anterior Tibial Artery, Percutaneous Approach (ICD-10-PCS; 2016-12-14)
PROC: 04CK3ZZ Extirpation of Matter from Right Femoral Artery, Percutaneous Approach (ICD-10-PCS; 2016-12-14)
PROC: 04CP3ZZ Extirpation of Matter from Right Anterior Tibial Artery, Percutaneous Approach (ICD-10-PCS; 2016-12-14)
PROC: B41F1ZZ Fluoroscopy of Right Lower Extremity Arteries using Low Osmolar Contrast (ICD-10-PCS; 2016-12-14)
PROC: 04CR3ZZ Extirpation of Matter from Right Posterior Tibial Artery, Percutaneous Approach (ICD-10-PCS; 2016-12-14)
DX: I74.3 Embolism and thrombosis of arteries of the lower extremities (principal); N17.9 Acute kidney failure, unspecified; I10 Essential (primary) hypertension; E78.00 Pure hypercholesterolemia, unspecified; G89.29 Other chronic pain; M54.9 Dorsalgia, unspecified; G25.81 Restless legs syndrome; I25.10 Atherosclerotic heart disease of native coronary artery without angina pectoris; E11.621 Type 2 diabetes mellitus with foot ulcer; L97.519 Non-pressure chronic ulcer of other part of right foot with unspecified severity; I25.2 Old myocardial infarction; Z95.5 Presence of coronary angioplasty implant and graft; Z87.891 Personal history of nicotine dependence; Z79.4 Long term (current) use of insulin; Z86.73 Personal history of transient ischemic attack (TIA), and cerebral infarction without residual deficits; Z79.82 Long term (current) use of aspirin; Z79.899 Other long term (current) drug therapy
CPT/HCPCS: 10078; 10096

== ENCOUNTER 2019-09-21 12:29 | Emergency (ER) | payer OTHER ==
[~2019-09-21] VITALS: Ht 167.6 cm; Wt 113.4 kg
[2019-09-21] MEDS ORDERED: COLACE100 MG PO (13:32)
[2019-09-21] MEDS ORDERED: NORCO 5-325 TA1 EAC1 PO (13:32)
[2019-09-21] MEDS ORDERED: ACYCLOVIR 800800 MG PO (13:32)
[2019-09-21 13:55] VITALS: BP 146/84
== END 2019-09-21 13:55 | disposition home or self-care (01) ==
LOC: ER 12:29
DX: B02.9 Zoster without complications (principal); I25.10 Atherosclerotic heart disease of native coronary artery without angina pectoris; I25.2 Old myocardial infarction; F17.210 Nicotine dependence, cigarettes, uncomplicated; Z86.73 Personal history of transient ischemic attack (TIA), and cerebral infarction without residual deficits